=== PATIENT | male | born 1985 | race Caucasian/White ===

== ENCOUNTER → 2017-03-09 | Outpatient (CLI) | payer OTHER | LOC: FIMAGING 08:07 | PROVIDERS: ATTEND Orthopaedic Surgery | DX: S83.281A Other tear of lateral meniscus, current injury, right knee, initial encounter (principal) ==

== ENCOUNTER 2018-05-18 15:07 | Emergency (ER) | payer OTHER ==
--- NOTE | 2018-05-18 15:44 | EDPHY ---
H & P Stated Complaint: l flamk and llq abd pain Time Seen by Provider: 05/18/18 15:44 HPI/ROS: CHIEF COMPLAINT: "I think I have a kidney stone" HISTORY OF PRESENT ILLNESS: The patient is a 33 y/o male complaining of waxing and waning left-sided flank pain radiating to his groin that began acutely 6 hours ago. He describes "intense pain" in this area that is aggravated by lying flat, which also causes radiation of the pain into his left testicle. No penile symptoms. He occasionally breaks out into a sweat. He took one old [place] he had from a prior surgery that did not alleviate his pain. He has not eaten anything yet today. No vomiting, diarrhea, fever. No history of abdominal surgeries. REVIEW OF SYSTEMS: A ten system review of systems was performed and is negative with the exception of the items mentioned in the HPI. Past medical history: Stomach ulcer - resolved (does not use ibuprofen or Aleve due to this) Past surgical history: Knee surgery Family history: Noncontributory Social history: Lives in [place]. Single. Employed. General Appearance: Alert. Vital signs reviewed. Blood pressure 141/86 at triage. Eyes: Pupils equal and round, no conjunctival injection, no discharge. Anicteric. ENT, Mouth: Mucous membranes are moist, no oropharyngeal erythema or edema. Neck: No lymphadenopathy, supple. Respiratory: Lungs are clear to auscultation; no wheezes, rales, or rhonchi. Cardiovascular: Regular rate and rhythm; no murmur, rub, or gallop. Gastrointestinal: Abdomen is soft, LLQ tenderness, no masses or organomegaly. : Normal male genitalia. No tenderness, erythema, or swelling of testicles. No inguinal hernia. Skin: Warm and dry, no rashes on exposed skin, normal color. Back: Nontender to palpation over the thoracolumbar spine. No CVAT. Extremities: No lower extremity edema, no calf tenderness or swelling. Neurological: Alert and oriented. Moving all four extremities easily and equally. Psychiatric: Normal affect. - Personal History Current Tetanus Diphtheria and Acellular Pertussis (TDAP): Yes - Medical/Surgical History Hx Asthma: No Hx Chronic Respiratory Disease: No Hx Diabetes: No Hx Cardiac Disease: No Hx Renal Disease: No Hx Cirrhosis: No Hx Alcoholism: No Hx HIV/AIDS: No Hx Splenectomy or Spleen Trauma: No Other PMH: denies - Social History Smoking Status: Never smoked Constitutional: Initial Vital Signs Temperature (C) 36.7 C 05/18/18 15:13 Heart Rate 59 L 05/18/18 15:13 Respiratory Rate 18 05/18/18 15:13 Blood Pressure 141/86 H 05/18/18 15:13 O2 Sat (%) 99 05/18/18 15:13 O2 Delivery Mode Room Air Allergies/Adverse Reactions: ibuprofen Allergy (Verified 05/18/18 15:12) tree nuts Allergy (Uncoded 05/18/18 15:13) Home Medications: Medication Instructions Recorded Tamsulosin HCl [Flomax] 0.4 mg PO DAILY #7 cap 05/18/18 oxyCODONE/APAP 5/325 [Percocet 1 - 2 tab PO Q4H PRN #15 tab 05/18/18 5/325 (RX)] Medical Decision Making - Diagnostics Imaging: Discussed imaging studies w/ bingo caller Radiologist, I viewed and interpreted images myself ED Course/Re-evaluation: This is a healthy 33 y/o male who presents with a 6-hour history of acute onset left flank pain radiating to his left lower abdomen and left testicle. He has LLQ tenderness on exam. He is hemodynamically stable and febrile. Presentation indicative of kidney stone. Plan for IV, labs, UA, abdominal CT, and symptomatic management. 1L IV NS, 4mg IV Zofran, 100mg IV Fentanyl ordered. UA shows RBCs. CT shows left ureteral stone. Reassessed patient and discussed findings. His pain is resurfacing and he is quite uncomfortable. Opted to try 15mg IV Toradol. 0.4mg PO Flomax ordered. 1810: Reassessed patient. He is feeling improved and like he can tolerate symptoms at home with medication. He will be discharged with scripts for Percocet and Flomax and referral to urology for follow up. He does not tolerate NSAIDs orally. Standard kidney stone care instructions and return precautions discussed. Differential Diagnosis: I considered ddx that includes but is not limited to ureteral stone, UTI, pyelonephritis, musculoskeletal pain, inguinal hernia, diverticulitis. - Data Points Medications Given: Discontinued Medications Fentanyl (Sublimaze) 100 mcg IVP EDNOW ONE Stop: 05/18/18 15:51 Last Admin: 05/18/18 16:05 Dose: 100 mcg Sodium Chloride (Ns) 1,000 mls @ 0 mls/hr IV EDNOW ONE; Wide Open PRN Reason: Protocol Stop: 05/18/18 15:51 Last Admin: 05/18/18 16:03 Dose: 1,000 mls Ketorolac Tromethamine (Toradol) 15 mg IVP EDNOW ONE Stop: 05/18/18 17:05 Last Admin: 05/18/18 17:07 Dose: 15 mg Ondansetron HCl (Zofran) 4 mg IVP EDNOW ONE Stop: 05/18/18 15:57 Last Admin: 05/18/18 16:05 Dose: 4 mg Oxycodone/Acetaminophen (Percocet 5/325mg Prepack#4) 1 btl TAKEHOME EDNOW ONE Stop: 05/18/18 18:39 Last Admin: 05/18/18 18:41 Dose: 1 btl Tamsulosin HCl (Flomax) 0.4 mg PO EDNOW ONE Stop: 05/18/18 17:05 Last Admin: 05/18/18 17:08 Dose: 0.4 mg Point of Care Test Results: Chemistry 05/18/18 18:29 POC Sodium 142 mEq/L mEq/L (135-145) POC Potassium 3.4 mEq/L mEq/L (3.3-5.0) POC Chloride 105 mEq/L mEq/L (97-110) POC BUN 16 mg/dL mg/dL (7-23) POC Creatinine 1.0 mg/dL mg/dL (0.7-1.3) POC Glucose 97 mg/dL mg/dL (70-100) ISTAT H&H 05/18/18 18:29 POC Hgb 16.3 gm/dL gm/dL (13.7-17.5) POC Hct 48 % % (40-51) Departure - Departure Disposition: Home, Routine, Self-Care Clinical Impression: Ureteral stone Condition: Good Instructions: Oxycodone/Acetaminophen (By mouth), How to Strain Your Urine (ED) , Ureteral Stones (ED) Additional Instructions: 1. Take Percocet as prescribed as needed for severe pain. This medication can make you drowsy and constipated. Do not use prior to driving or operating machinery. 2. Take Flomax as prescribed. 3. Use urine strainer as directed. 4. Follow up with urology this week. 5. Return to the ED for uncontrollable vomiting, fever, inability to urinate, or other worsening of condition. Referrals: Ajay Bnauelos MD [Medical Doctor] - As per Instructions Prescriptions: oxyCODONE/APAP 5/325 [Percocet 5/325 (RX)] 1 - 2 tab PO Q4H PRN #15 tab PRN Reason: Pain, Severe Tamsulosin HCl [Flomax] 0.4 mg PO DAILY #7 cap Report Scribed for: Theresa Lowe Report Scribed by: Alma Delia Walls Date of Report: 05/18/18 Time of Report: 15:52 Physician Review and Approval Statement: 05/18/18 15:44 Portions of this note were transcribed by the medical equipment repairer. I, Dr. Theresa Lowe, personally performed the history, physical exam, and medical decision- making; and confirmed the accuracy of the information in the transcribed note.
[2018-05-18] MEDS ORDERED: NS 1,000 ML IV ONE (15:50)
[2018-05-18] MEDS ORDERED: fentaNYL 100 MCG/2 ML INJ IVP ONE (15:50)
[2018-05-18] MEDS ORDERED: ONDANSETRON 4 MG/2 ML VIAL ONE (15:54)
[2018-05-18] MEDS ORDERED: ONDANSETRON 4 MG/2 ML VIAL IVP ONE (15:56)
[2018-05-18] MEDS ORDERED: KETOROLAC 30 MG/1 ML SDV IVP ONE (17:04)
[2018-05-18] MEDS ORDERED: TAMSULOSIN HCL 0.4 MG CAP PO ONE (17:04)
[2018-05-18 18:28] VITALS: BP 111/63
[2018-05-18] MEDS ORDERED: OXYCODONE/APAP 5/325MG PREPACK#4 BTL TAKEHOME ONE ×2 (18:38→18:39)
== END 2018-05-18 18:41 | disposition home or self-care (01) ==
DX: N20.1 Calculus of ureter (principal); E86.9 Volume depletion, unspecified
CPT/HCPCS: 82435-PO; 82565-PO; 82947-PO; 84132-PO; 84295-PO; 84520-PO; 85014-PO; 96374; J1885; J2405; J3010